=== PATIENT | male | born 1975 | race African-American/Black ===

== ENCOUNTER 2020-07-11 14:09 | Emergency (ER) | payer BC ==
[~2020-07-11] VITALS: Ht 180.3 cm; Wt 88.5 kg
[~2020-07-11 14:09] MED LIST: AMOXIL500 MG PO; PREDNISONE20 MG PO; TESSALON PERLE100 M1 PO
== END 2020-07-11 16:25 | disposition home or self-care (01) ==
LOC: ED 14:09
DX: B34.9 Viral infection, unspecified (principal); Z20.822 Contact with and (suspected) exposure to COVID-19

== ENCOUNTER 2020-09-12 09:30 | Inpatient (IN) | payer BC ==
[~2020-09-12] VITALS: Ht 180.3 cm; Wt 100.7 kg
[2020-09-12 09:35] VITALS: BP 147/84
[2020-09-12 10:04] LABS: HEMATOCRIT 44.8 % (42.0-52.0); MEAN CELL VOLUME 82.5 fl (80.0-94.0); MEAN CORPUSCULAR HGB 26.3 pg (27.0-31.0); MEAN CORPUSCULAR HGB CONC 31.9 g/dl (33.0-37.0); MEAN PLATELET VOLUME 10.8 fl (9.6-12.3); PLATELET COUNT AUTOMATED 244 10*3/uL (130-400); RED BLOOD COUNT 5.43 10*6/uL (4.50-5.90); RED CELL DISTRI WIDTH 13.1 % (0-14.5); WHITE BLOOD COUNT 20.1 10*3/uL (4.8-10.8)
[2020-09-12 10:25] LABS: ALBUMIN 3.7 gm/dl (3.1-4.5); ALKALINE PHOSPHATASE 75 U/L (45-117); BUN 10 mg/dl (7-24); CHLORIDE 107 mmol/L (98-107); CREATININE 1.09 mg/dL (0.70-1.30); POTASSIUM 3.8 mmol/L (3.5-5.1); SGOT/AST 19 IU/L (3-35); SGPT/ALT 42 U/L (12-78); SODIUM 137 mmol/L (136-145); TOTAL PROTEIN 7.8 gm/dL (6.4-8.2)
[2020-09-12 10:26] LABS: PLATELET SUFFICIENCY NORMAL (NORMAL); TOTAL CELLS COUNTED 100 #CELLS
[2020-09-12 18:00] VITALS: BP 133/76
[2020-09-12 18:41] VITALS: BP 166/82
[2020-09-12 20:00] VITALS: BP 151/75
[2020-09-13] VITALS: BP 143/79
[2020-09-13 06:45] LABS: MEAN CELL VOLUME 82.1 fl (80.0-94.0); MEAN CORPUSCULAR HGB CONC 31.6 g/dl (33.0-37.0); MEAN PLATELET VOLUME 11.4 fl (9.6-12.3); PLATELET COUNT AUTOMATED 229 10*3/uL (130-400); RED BLOOD COUNT 5.24 10*6/uL (4.50-5.90); RED CELL DISTRI WIDTH 13.1 % (0-14.5); WHITE BLOOD COUNT 19.9 10*3/uL (4.8-10.8)
[2020-09-13 06:50] LABS: ACT PARTIAL THROMBO TIME 29.4 SECONDS (20.0-32.1); INTERNATIONAL NORM RATIO 1.1 (2.0-3.5)
[2020-09-13 06:58] LABS: ALBUMIN 3.3 gm/dl (3.1-4.5); BUN 9 mg/dl (7-24); CHLORIDE 107 mmol/L (98-107); CHOLESTEROL 237 mg/dL (<200); CREATININE 0.99 mg/dL (0.70-1.30); FREE T4 0.93 ng/dl (0.76-1.46); LDL CHOLESTEROL 184 mg/dL (9-159); POTASSIUM 3.7 mmol/L (3.5-5.1); SGOT/AST 13 IU/L (3-35); SGPT/ALT 33 U/L (12-78); SODIUM 138 mmol/L (136-145); TOTAL PROTEIN 7.5 gm/dL (6.4-8.2); TRIGLYCERIDES 93 mg/dl (<150)
[2020-09-13 07:06] LABS: ALKALINE PHOSPHATASE 62 U/L (45-117); THYROID STIM HORMONE (HS) 0.771 uIU/ml (0.358-4.75)
[2020-09-13 07:23] LABS: PLATELET SUFFICIENCY NORMAL (NORMAL); TOTAL CELLS COUNTED 100 #CELLS
[2020-09-13 08:00] VITALS: BP 141/86
[2020-09-13 12:00] VITALS: BP 138/77
[2020-09-13 16:00] VITALS: BP 144/85
[2020-09-13 20:00] VITALS: BP 142/76
[2020-09-14] VITALS: BP 135/80
[2020-09-14 06:13] LABS: HEMATOCRIT 41.8 % (42.0-52.0); MEAN CORPUSCULAR HGB 26.1 pg (27.0-31.0); MEAN CORPUSCULAR HGB CONC 31.8 g/dl (33.0-37.0); PLATELET COUNT AUTOMATED 249 10*3/uL (130-400); RED CELL DISTRI WIDTH 12.9 % (0-14.5); WHITE BLOOD COUNT 16.8 10*3/uL (4.8-10.8)
[2020-09-14 06:21] LABS: BUN 10 mg/dl (7-24); CHLORIDE 109 mmol/L (98-107); CREATININE 0.98 mg/dL (0.70-1.30); POTASSIUM 3.9 mmol/L (3.5-5.1); SODIUM 138 mmol/L (136-145)
[2020-09-14 07:00] LABS: BASOPHILS 1 % (0-1); PLATELET SUFFICIENCY NORMAL (NORMAL); TOTAL CELLS COUNTED 100 #CELLS
[2020-09-14 08:00] VITALS: BP 131/74
[2020-09-14 12:00] VITALS: BP 137/73
[2020-09-14] MEDS ORDERED: DOXYCYCLINE100 M3 PO (14:21)
== END 2020-09-14 19:11 | disposition home or self-care (01) | DRG 854 ==
LOC: ED 09:30 → EDHOLD 11:42 → 5E 11:42
PROVIDERS: Emergency Medicine; Social Worker Clinical; Student in an Organized Health Care Education/Training Program; ADMIT Family Medicine; ATTEND Family Medicine
PROC: 0J910ZZ Drainage of Face Subcutaneous Tissue and Fascia, Open Approach (ICD-10-PCS; principal; 2020-09-12)
DX: A41.9 Sepsis, unspecified organism (principal); L03.211 Cellulitis of face; R73.9 Hyperglycemia, unspecified; E80.6 Other disorders of bilirubin metabolism; Z68.31 Body mass index [BMI] 31.0-31.9, adult; Z88.8 Allergy status to other drugs, medicaments and biological substances; Z82.0 Family history of epilepsy and other diseases of the nervous system; Z79.2 Long term (current) use of antibiotics

== ENCOUNTER → 2020-09-15 | Outpatient (CLI) | payer BC ==
[~2020-09-15] MED LIST changes: +DOXYCYCLINE100 M3 PO
== END ==
LOC: WOUNDCARE 02:34
PROVIDERS: ATTEND Nurse Practitioner
DX: T81.89XA Other complications of procedures, not elsewhere classified, initial encounter (principal); L02.01 Cutaneous abscess of face; A49.02 Methicillin resistant Staphylococcus aureus infection, unspecified site; E80.6 Other disorders of bilirubin metabolism; Z79.899 Other long term (current) drug therapy; Z72.89 Other problems related to lifestyle; Y83.8 Other surgical procedures as the cause of abnormal reaction of the patient, or of later complication, without mention of misadventure at the time of the procedure; Y92.238 Other place in hospital as the place of occurrence of the external cause

== ENCOUNTER → 2020-09-21 | Outpatient (CLI) | payer BC | LOC: WOUNDCARE 02:02 | PROVIDERS: ATTEND Nurse Practitioner | DX: L02.01 Cutaneous abscess of face (principal); A49.02 Methicillin resistant Staphylococcus aureus infection, unspecified site; E80.6 Other disorders of bilirubin metabolism; Z79.899 Other long term (current) drug therapy; Z72.89 Other problems related to lifestyle; Y83.8 Other surgical procedures as the cause of abnormal reaction of the patient, or of later complication, without mention of misadventure at the time of the procedure ==